=== PATIENT | male | born 1935 | race Caucasian/White ===

== ENCOUNTER → 2016-10-18 | Outpatient (CLI) | payer OTHER ==
[~2016-10-18] MED LIST: AVAPRO PO; DIOVAN PO; OMEPRAZOLE40 MG PO; PRILOSEC PO; ZOCOR PO
--- NOTE | ~2016-10-18 | HM ---
Unit #: [id number] #: [id number] Patient: KARINE CARDOSO [id number] [address] [place], [place] [address] [id number] MR#: [id number] NAME: KARINE CARDOSO. : 1935 SEX: M STUDY DATE/TIME: UNIT: [facility] [place] ROOM: STUDY DESCRIPTION: Holter Monitor Attending Physician: Flo Pickett M.D. Referring Physician: Flo Pickett M.D. Primary Care Physician: Flo Pickett M.D. CARDIOLOGY REPORT EXAM Holter Monitor DATE APPLIED 10/18/2016 DATE SCANNED 10/24/[address] Juan Francisco Pickett READ BY Dr. Hilary Heredia REASON FOR TEST Bradycardia. COMMENTS 1. Underlying rhythm is normal sinus. Average heart rate is 58 beats per minute. The slowest recorded heart rate was 41 beats per minute seen at 5:03 a.m. and the maximal recorded heart rate was 100 beats per minute see at 2:12 p.m. 2. Very rare isolated PVCs are noted with a total of 21 beats in 24 hours. There were no runs of ventricular tachycardia. 3. There are very rare isolated PACs with a total of 262 beats in 24 hours. 4. There were 4 runs of atrial tachycardia. There was a 6 beat run of atrial tachycardia at a rate of 77 per minute noted at 10:51 a.m. and a four beat run of atrial tachycardia at a rate of 110 beats per minute seen at 5:54 p.m. 5. These runs of atrial tachycardia spontaneously converted to normal sinus rhythm without intervening bradycardia. 6. There is no AV mat block, sinus arrest or sinus pause. 7. The patient did not maintain any symptom or activity diary. IMPRESSION 24 hour ambulatory monitoring is within normal limits with very rare PACs, very rare PVCs, and two nonsustained runs of atrial tachycardia at a controlled ventricular heart rate. Unit #: [id number] #: [id number] Patient: KARINE CARDOSO Dictated by... Stanislav Heredia M.D. AKU/fly TD: 10/26/2016 08:09 JOB #: [id number] CARDIOLOGY REPORT Page 1 of 1 X Stanislav Heredia MD HOLTER MONITOR REPORT
== END | disposition home or self-care (01) ==
LOC: CEKG 13:42
DX: R00.1 Bradycardia, unspecified (principal); R00.0 Tachycardia, unspecified
CPT/HCPCS: 93225; 93226